=== PATIENT | female | born 1975 ===

== ENCOUNTER → 2025-02-24 11:52 | Outpatient (CLI) | payer BC, SELFPAY ==
--- NOTE | 2025-02-24 11:53 | DI.US.S_ITS ---
MM diagnostic mammo unilat LT, US breast LT limited: 02/24/2025 BI-RADS: 2 CLINICAL: 49-year old female for left diagnostic mammogram and left diagnostic breast ultrasound. The patient presents for additional evaluation of an inconclusive screening mammogram. Tyrer-Cuzick lifetime risk of 6.6%. No personal or first-degree family history of breast cancer. PRIOR EXAMS [facility] 07/26/2024. MAMMOGRAPHY TECHNIQUE: 2D and 3D (tomosynthesis) digital mammographic views obtained, with additional images as needed for full coverage. Current study was also evaluated with a Computer Aided Detection (CAD) system. ULTRASOUND TECHNIQUE Real-time rivera scale and color doppler imaging of the area of clinical interest was performed with image documentation. Left targeted breast ultrasound of the area of clinical interest and the axilla was performed with image documentation. DENSITY Left: C. The breast is heterogeneously dense, which may obscure small masses. MAMMOGRAPHY FINDINGS Left (finding-1): Inner Central, Anterior depth, measuring 0.6cm: Correlating with findings on screening mammogram there is a circumscribed, oval, equal-density mass present. Left (finding-2): MLO only, Upper, Middle depth, measuring 0.4cm: Correlating with findings on screening mammogram, there is an asymmetry present. This finding is less conspicuous with additional views. ULTRASOUND FINDINGS Left (finding-1): Upper Inner at 10:00, 2 cm from nipple, measuring 0.4 x 0.5 x 0.5 cm: Correlating with findings on mammogram, there is a simple anechoic cyst. Doppler shows no vascularity. Left (finding-2): Upper Inner at 10:00, 4 cm from nipple, measuring 0.2 x 0.2 x 0.3 cm: Correlating with findings on mammogram, there is a cyst with artifacts. Doppler shows no vascularity. IMPRESSION: Left * No evidence of malignancy with benign findings. RECOMMENDATIONS Bilateral * Annual screening mammography (due July 2025). COMMENTS: Findings and recommendations were conveyed to the patient during today's evaluation. OVERALL ASSESSMENT CATEGORY BI-RADS-2: Benign. The [employer] recommends annual screening mammography beginning at age 40 for women with average risk of breast cancer. ELECTRONICALLY SIGNED: Sabrina Galindo M.D. on 02/24/2025 at 01:29:38 PM PT Interpreting Station ID: [id number]
== END ==
PROVIDERS: PCP Student in an Organized Health Care Education/Training Program; Referring Provider Student in an Organized Health Care Education/Training Program; Visit Provider Student in an Organized Health Care Education/Training Program
DX: R92.2 Inconclusive mammogram (principal); N60.02 Solitary cyst of left breast; R92.332 Mammographic heterogeneous density, left breast
CPT/HCPCS: 76642; 77065; G0279